=== PATIENT | female | born 1940 | race Caucasian/White ===

== ENCOUNTER 2017-10-18 08:52 | Outpatient (CLI) | payer MEDICARE ==
--- NOTE | 2017-10-18 14:25 | PET ---
PET SCAN: HISTORY: Senile degeneration of brain (initial). COMPARISON: None. TECHNIQUE: Patient administered 12.41 mCi of F18-FDG. FINDINGS: There is symmetric uptake of the radiotracer. No evidence of decreased radiotracer localization. No e vidence of decreased metabolic activity throughout the cerebrum. IMPRESSION: No evidence of decreased metabolic activity throughout the cerebrum. POS: [facility]
== END 2017-10-18 08:53 | disposition home or self-care (01) ==
LOC: PET 08:52
PROVIDERS: ATTEND Psychiatry & Neurology Neurology
DX: G31.1 Senile degeneration of brain, not elsewhere classified (principal)
CPT/HCPCS: 78608; A9552

== ENCOUNTER 2018-08-31 06:46 | Day surgery (SDC) | payer MEDICARE ==
[2018-08-30 14:24] VITALS: BMI 25.3
[2018-08-31 08:18] VITALS: BP 155/79; TEMP 98.4
--- NOTE | 2018-08-31 10:04 | RAD ---
HIGH VOLUME LUMBAR PUNCTURE PERFORMED UNDER FLUOROSCOPY: History: Normal pressure hydrocephalus. A large volume tap was requested between 20-30 cc. Technique: After informed consent was obtained the patient was prepped and draped in the normal sterile fashion. Local anesthesia was obtained with 1% Xylocaine. A L5-S1 puncture was performed using a 20 gauge spi nal needle. Opening pressure was approximately 11. Total volume of 30 cc of clear CSF were obtained. The patient tolerated the procedure well. There were no immediate complications. IMPRESSION: Successful large volume tap. No complications. POS: [facility]
== END 2018-08-31 10:40 | disposition home or self-care (01) ==
LOC: RAD 06:46
PROVIDERS: ATTEND Neurological Surgery
PROC: 009U3ZZ Drainage of Spinal Canal, Percutaneous Approach (ICD-10-PCS; principal; 2018-08-31)
DX: G91.2 (Idiopathic) normal pressure hydrocephalus (principal); J45.909 Unspecified asthma, uncomplicated; I10 Essential (primary) hypertension; M19.90 Unspecified osteoarthritis, unspecified site; Z87.891 Personal history of nicotine dependence; Z79.82 Long term (current) use of aspirin; Z79.899 Other long term (current) drug therapy; Z88.5 Allergy status to narcotic agent
CPT/HCPCS: 62270; 97116; 97139; G8978; G8979